=== PATIENT | female | born 1935 | race Caucasian/White ===

== ENCOUNTER → 2018-01-26 | Outpatient (CLI) | payer OTHER ==
[~2018-01-26] MED LIST: ACTOS 30 MG TAB30 MG PO; ADULT LOW DOSE81 MG PO; ALLERGY10 MG PO; CALCIUM CARBO1000 MG PO; CENTRUM SILVER1 EAC1 PO; GLUCOPHAGE500 MG PO; OMEGA-31000 MG PO; PRAVASTATIN SOD20 MG PO
== END ==
LOC: RAD 02:21
DX: Z12.31 Encounter for screening mammogram for malignant neoplasm of breast (principal)

== ENCOUNTER → 2018-11-02 | Outpatient (CLI) | payer OTHER | LOC: HYPER 06:53 | DX: S80.11XA Contusion of right lower leg, initial encounter (principal); S81.831A Puncture wound without foreign body, right lower leg, initial encounter; E11.9 Type 2 diabetes mellitus without complications; Z79.84 Long term (current) use of oral hypoglycemic drugs; Z90.710 Acquired absence of both cervix and uterus; Z79.4 Long term (current) use of insulin; W22.8XXA Striking against or struck by other objects, initial encounter; Y93.89 Activity, other specified; Y92.89 Other specified places as the place of occurrence of the external cause; Y99.8 Other external cause status ==

== ENCOUNTER → 2018-11-19 | Outpatient (CLI) | payer OTHER | LOC: HYPER 05:32 | DX: S80.11XD Contusion of right lower leg, subsequent encounter (principal); E11.9 Type 2 diabetes mellitus without complications; Z79.84 Long term (current) use of oral hypoglycemic drugs; W22.8XXD Striking against or struck by other objects, subsequent encounter ==

== ENCOUNTER → 2018-12-15 | Outpatient (CLI) | payer OTHER | LOC: HYPER 06:42 | DX: S80.11XD Contusion of right lower leg, subsequent encounter (principal); Z79.84 Long term (current) use of oral hypoglycemic drugs; W22.8XXD Striking against or struck by other objects, subsequent encounter ==